=== PATIENT | female | born 1995 | race African-American/Black ===

== ENCOUNTER 2016-09-10 13:44 | Emergency (ER) | payer OTHER ==
[2016-09-10 14:11] VITALS: BP 122/74
--- NOTE | 2016-09-10 14:41 | PHYS DOC ---
Past Medical History Past Medical History: Depression Past Surgical History: No Surgical History Alcohol Use: Occasionally Drug Use: None Adult General Chief Complaint Chief Complaint: NAUSEA/VOMITING/DIARRHA HPI HPI Patient is a 21 year old female who presents with complaint of nausea, vomiting , and diarrhea since last night. Patient states that she has had a total of 3-4 episodes of vomiting and 2 episodes of loose stools since onset of symptoms. Patient states that she ate candy, cake, and soda last night and stated that she thought this made her sick, however she states that she has had continued symptoms since last night after eating. Patient denies any associated fevers. Patient denies any significant past medical history. Patient states that she is currently on her menstrual period. Patient states that she is having aching upper abdominal pain but denies any sharp localized pain. Patient states that she has not been able to tolerate any food since onset of symptoms. Patient has not taken any medications to help with symptoms at this time. Review of Systems Review of Systems Constitutional: Denies fever or chills [] Eyes: Denies change in visual acuity, redness, or eye pain [] HENT: Denies nasal congestion or sore throat [] Respiratory: Denies cough or shortness of breath [] Cardiovascular: Denies chest pain or edema [] GI: Nausea, vomiting, diarrhea, abdominal pain [] : Denies dysuria or hematuria [] Musculoskeletal: Denies back pain or joint pain [] Integument: Denies rash or skin lesions [] Neurologic: Denies headache, focal weakness or sensory changes [] Current Medications Current Medications Current Medications Medications (Trade) Dose Ordered Sig/[facility] Start Time Stop Time Status Last Admin Dose Admin Ondansetron HCl (Zofran Odt) 8 mg 1X ONCE 09/10/16 14:45 09/10/16 14:46 DC 09/10/16 14:45 8 MG Allergies Allergies Allergies Coded Allergies Type Severity Reaction Last Updated Verified No Known Drug Allergies 05/07/15 No Physical Exam Physical Exam Constitutional: Alert, afebrile, appears in no acute distress. [] HENT: Normocephalic, atraumatic, bilateral external ears normal, oropharynx moist, no oral exudates, nose normal. [] Eyes: PERRLA, EOMI, conjunctiva normal, no discharge. [] Neck: Normal range of motion, no tenderness, supple, no stridor. [] Cardiovascular:Heart rate regular rhythm, no murmur [] Lungs & Thorax: Bilateral breath sounds clear to auscultation [] Abdomen: Bowel sounds normal, soft, no tenderness, no masses, no pulsatile masses. [] Skin: Warm, dry, no erythema, no rash. [] Back: No tenderness, no CVA tenderness. [] Extremities: No tenderness, no cyanosis, no clubbing, ROM intact, no edema. [] Neurologic: Alert and oriented X 3, normal motor function, normal sensory function, no focal deficits noted. [] Current Patient Data Vital Signs Vital Signs Date Time Temp Pulse Resp B/P (MAP) Pulse Ox O2 Delivery O2 Flow Rate FiO2 09/10/16 14:11 99.2 88 20 99 Room Air 99.2 Lab Values Laboratory Tests Test 09/10/16 13:34 09/10/16 14:18 POC Urine HCG, Qualitative Hcg negative (Negative) Urine Collection Type Void Urine Color [place]a Urine Clarity Cloudy Urine pH 5.5 Urine Specific [place] >=1.030 Urine Protein 30 mg/dL (NEG-TRACE) Urine Glucose (UA) Negative mg/dL (NEG) Urine Ketones (Stick) Negative mg/dL (NEG) Urine Blood Large (NEG) Urine Nitrite Negative (NEG) Urine Bilirubin Small (NEG) Urine Urobilinogen Dipstick 0.2 mg/dL (0.2 mg/dL) Urine Leukocyte Esterase Trace (NEG) Urine RBC 3-5 /HPF (0-2) Urine WBC 11-20 /HPF (0-4) Urine Squamous Epithelial Cells Mod /LPF Urine Bacteria Moderate /HPF (0-FEW) Urine Mucus Mod /LPF EKG EKG Not performed [] Radiology/Procedures Radiology/Procedures Not performed [] Course & Med Decision Making Course & Med Decision Making Pertinent Labs and Imaging studies reviewed. (See chart for details) Patient was given oral Zofran in the emergency department with improvement in symptoms. Patient was able to tolerate by mouth intake without difficulty. The patient's urine sample appears to be contaminated. Patient denies any urinary symptoms, thus I have decided to not start patient on antibiotics pending cultures at this time. Advised patient to follow-up with her primary doctor in 2 -3 days if symptoms are not improving and return to emergency department for any worsening symptoms. Patient voiced understanding and in agreement with treatment plan. Dragon Disclaimer Dragon Disclaimer This electronic medical record was generated, in whole or in part, using a voice recognition dictation system. Departure Departure Impression: Primary Impression: Nausea and vomiting Additional Impression: Diarrhea Disposition: 01 HOME, SELF-CARE Condition: IMPROVED Referrals: NO PCP (PCP) Patient Instructions: Diarrhea, Nausea and Vomiting Additional Instructions: Follow-up with her primary doctor in 2-3 days if symptoms are not improving. Return to the emergency department for any worsening symptoms. Scripts Ondansetron (ZOFRAN ODT) 4 Mg Tab.rapdis 4 MG PO Q8HRS Y for NAUSEA/VOMITING, #20 TAB Prov: EMELYN HOLLAND MD 09/10/16 Problem Qualifiers Primary Impression: Nausea and vomiting Vomiting type: unspecified Vomiting Intractability: non-intractable Qualified Codes: R11.2 - Nausea with vomiting, unspecified Additional Impression: Diarrhea Diarrhea type: presumed infectious Qualified Codes: A09 - Infectious gastroenteritis and colitis, unspecified EMELYN HOLLAND MD Sep 10, 2016 14:41
[2016-09-10] MEDS ORDERED: ONDANSETRON ODT 4 MG TAB.RAPDIS. PO ONE (14:45)
[2016-09-10 14:59] LABS: BILIRUBIN,URINE SMALL (NEG); GLUCOSE,URINE NEGATIVE (NEG); NITRITE,URINE NEGATIVE (NEG); PH,URINE 5.5; PROTEIN,URINE 30 mg/dL (NEG-TRACE); UROBILINOGEN,URINE 0.2 mg/dL (0.2 mg/dL)
[2016-09-10 15:40] LABS: BACTERIA,URINE MODERATE /HPF (0-FEW); SQUAMOUS EPITHELIAL CELL,UR MOD /LPF
[2016-09-10] MEDS ORDERED: ONDA4TAB10 PO (15:53)
== END 2016-09-10 16:15 | disposition home or self-care (01) ==
LOC: ER 13:44
DX: A09 Infectious gastroenteritis and colitis, unspecified (principal); F32.9 Major depressive disorder, single episode, unspecified
CPT/HCPCS: 81001; 81025; 87086; 99284; Q0162

== ENCOUNTER 2018-02-11 13:43 | Emergency (ER) | payer OTHER ==
[~2018-02-11] VITALS: Ht 157.5 cm; Wt 59.9 kg
[~2018-02-11 13:43] MED LIST: ONDA4TAB10 PO
[2018-02-11 14:08] LABS: BILIRUBIN,URINE NEGATIVE (NEG); CLARITY,URINE CLEAR; COLOR,URINE YELLOW; NITRITE,URINE NEGATIVE (NEG); PROTEIN,URINE NEGATIVE (NEG-TRACE); UROBILINOGEN,URINE 0.2 mg/dL (0.2 mg/dL)
[2018-02-11 14:17] LABS: BACTERIA,URINE MOD /HPF (0-FEW); RBC,URINE 0 /HPF (0-2); SQUAMOUS EPITHELIAL CELL,UR MOD /LPF
[2018-02-11] MEDS ORDERED: cefTRIAXone IM 250 MG VIAL IM ONE (15:00)
[2018-02-11] MEDS ORDERED: AZITHROMYCIN 250 MG TABLET. PO ONE (15:00)
[2018-02-11] MEDS ORDERED: METR500T PO (15:08)
--- NOTE | 2018-02-11 15:15 | PHYS DOC ---
Past Medical History Past Medical History: Depression Past Surgical History: No Surgical History Alcohol Use: Occasionally Drug Use: None Adult General Chief Complaint Chief Complaint: NAUSEA/VOMITING/DIARRHA HPI HPI Patient is a 22 year old female who presents with vaginal complaints. Patient states she was on dip oh until August of this year. She would have been due for another shot of Depo-Provera in late November. She chose to go off Depakote at that time. Since then she has had some irregular vaginal bleeding. She states the bleeding is about equal to a period but it is occurring with increasing frequency. No bib or excessive bleeding. No lightheadedness. No palpitations. She also complains of some yellow vaginal discharge that is normal. She was last sexually active 3 months earlier. No fever. Mild pelvic cramping but no persistent or severe pain or cramps. Review of Systems Review of Systems Constitutional: Denies fever or chills Eyes: Denies change HENT: Denies Respiratory: Denies cough or shortness of breath Cardiovascular: No additional information not addressed GI: Denies abdominal pain : Denies dysuria or hematuria Neurologic: Denies headache All other systems were reviewed and found to be within normal limits, except as documented in this note. Current Medications Current Medications Current Medications Medications (Trade) Dose Ordered Sig/[facility] Start Time Stop Time Status Last Admin Dose Admin Azithromycin (Zithromax) 1,000 mg 1X ONCE 02/11/18 15:00 02/11/18 15:03 DC Ceftriaxone Sodium (Rocephin Im) 250 mg 1X ONCE 02/11/18 15:00 02/11/18 15:03 DC Allergies Allergies Allergies Coded Allergies Type Severity Reaction Last Updated Verified No Known Drug Allergies 05/07/15 No Physical Exam Physical Exam Constitutional: Well developed, well nourished, no acute distress, non-toxic appearance HENT: Normocephalic, atraumatic, bilateral external ears normal, oropharynx moist Eyes: PERRLA, EOMI, conjunctiva normal Neck: Normal range of motion Cardiovascular:Heart rate regular rhythm, no murmur Lungs & Thorax: Bilateral breath sounds clear to auscultation Abdomen: Bowel sounds normal, soft, no tenderness Skin: Warm, dry, no erythema, no rash Back: No tenderness, no CVA tenderness Neurologic: Alert and oriented X 3 Psychologic: Affect normal Pelvic: normal female external genitalia. Vaginal mucosa is moist and uninflamed. Cervix is closed. Small amt of brown, old blood in vault but no active bleeding. No CMT or adnexal tenderness or masses. Current Patient Data Vital Signs Vital Signs Date Time Temp Pulse Resp B/P (MAP) Pulse Ox O2 Delivery O2 Flow Rate FiO2 02/11/18 13:50 98.5 74 16 140/67 (91) 98 Room Air 98.5 Lab Values Laboratory Tests Test 02/11/18 13:52 02/11/18 14:54 Urine Collection Type Unknown Urine Color Yellow Urine Clarity Clear Urine pH 6.0 Urine Specific [place] 1.020 Urine Protein Negative mg/dL (NEG-TRACE) Urine Glucose (UA) Negative mg/dL (NEG) Urine Ketones (Stick) Negative mg/dL (NEG) Urine Blood Moderate (NEG) Urine Nitrite Negative (NEG) Urine Bilirubin Negative (NEG) Urine Urobilinogen Dipstick 0.2 mg/dL (0.2 mg/dL) Urine Leukocyte Esterase Negative (NEG) Urine RBC 0 /HPF (0-2) Urine WBC 1-4 /HPF (0-4) Urine Squamous Epithelial Cells Mod /LPF Urine Bacteria Mod /HPF (0-FEW) Urine Mucus Mod /LPF POC Urine HCG, Qualitative Hcg negative (Negative) Microbiology 02/11/18 Wet Prep - Final, Complete EKG EKG [] Radiology/Procedures Radiology/Procedures [] Course & Med Decision Making Course & Med Decision Making Pertinent Labs and Imaging studies reviewed. (See chart for details) Patient was evaluated in the emergency department for some vaginal complaints and irregular bleeding. There was no sign of acute bleeding on her physical exam. Her vital signs were normal. Her conjunctiva did not have pallor. She had strong equal pulses. Pelvic exam was completed as documented above. The wet mount did reveal likely bacterial vaginosis. I gave the patient the option to receive empiric treatment for possible STD which she did opt to accept. She was given Rocephin and azithromycin in the emergency department. She was discharged home with Flagyl over the next 7 days. She is provided Dr. Camacho's information to follow-up regarding her irregular bleeding and her future control needs. Dragon Disclaimer Dragon Disclaimer This electronic medical record was generated, in whole or in part, using a voice recognition dictation system. Departure Departure Impression: Primary Impression: Bacterial vaginosis Disposition: HOME, SELF-CARE Condition: GOOD Patient Instructions: Bacterial Vaginosis Scripts Metronidazole (FLAGYL) 500 Mg Tablet 1 TAB PO BID, #14 TAB Prov: ESTEBAN TELLEZ DO 02/11/18 ESTEBAN TELLEZ DO Feb 11, 2018 15:15
[2018-02-11 15:27] VITALS: BP 127/76
[2018-02-12 15:31] LABS: GC PROBE Negative (Negative)
== END 2018-02-11 15:31 | disposition home or self-care (01) ==
LOC: ER 13:43
DX: N76.0 Acute vaginitis (principal); B96.89 Other specified bacterial agents as the cause of diseases classified elsewhere
CPT/HCPCS: 81001; 81025; 87491; 87591; 99284; J0696; Q0111; Q0144

== ENCOUNTER 2018-03-24 04:52 | Emergency (ER) | payer OTHER ==
[~2018-03-24] VITALS: Ht 165.1 cm; Wt 59.9 kg
[~2018-03-24 04:52] MED LIST changes: +METR500T PO
--- NOTE | 2018-03-24 05:37 | PHYS DOC ---
Past Medical History Past Medical History: Depression Past Surgical History: No Surgical History Alcohol Use: Occasionally Drug Use: None Adult General Chief Complaint Chief Complaint: VAGINAL BLEEDING HPI HPI Patient is a 22 year old female who presents with pelvic pain and irregular vaginal bleeding. Patient had previously been on Depo-Provera. Her last dose was in August of this year. She decided not to renew that medication when it was time. Since then, the patient has had some irregular bleeding but states over the last several months she did have more regular menstrual periods which she normally describes to be light. She presents to the ER today with pelvic cramping and vaginal bleeding over the last 7-10 days. She describes soaking many pads daily and going through several boxes of tampons and pads. This is not normal for her. She comes in today with an episode of what she perceives to be a large amount of blood immediately after waking up this morning. No fever or chills. She denies chance of although she is not currently on control. No lightheadedness or palpitations. Review of Systems Review of Systems Constitutional: Denies fever Eyes: Denies change in visual acuity HENT: Denies Respiratory: Denies dyspnea Cardiovascular: No additional information not addressed in HPI GI: Denies abdominal pain, nausea : Denies dysuria or hematuria Musculoskeletal: Denies back pain Integument: Denies rash Neurologic: Denies headache All other systems were reviewed and found to be within normal limits, except as documented in this note. Current Medications Current Medications Current Medications Medications (Trade) Dose Ordered Sig/[facility] Start Time Stop Time Status Last Admin Dose Admin Acetaminophen/ Hydrocodone Bitart (Lortab 5/325) 1 tab 1X ONCE 03/24/18 06:45 03/24/18 06:46 Ibuprofen (Motrin) 800 mg 1X ONCE 03/24/18 06:45 03/24/18 06:46 Allergies Allergies Allergies Coded Allergies Type Severity Reaction Last Updated Verified No Known Drug Allergies 05/07/15 No Physical Exam Physical Exam Constitutional: Well developed, well nourished, no acute distress, non-toxic appearance HENT: Normocephalic, atraumatic, bilateral external ears normal, oropharynx moist Eyes: PERRLA, EOMI Neck: Normal range of motion Cardiovascular:Heart rate regular rhythm, no murmur Lungs & Thorax: Bilateral breath sounds clear to auscultation Abdomen: Bowel sounds normal, soft, no tenderness Skin: Warm, dry, no erythema, no rash Extremities: No tenderness Neurologic: Alert and oriented X 3 Psychologic: Affect normal Pelvic: normal female external genitalia. Vaginal mucosa is uninflamed. small amt of blood oozing from os. Mild adnexal tenderness on the right. None on the left. No cervical motion tenderness. Current Patient Data Vital Signs Vital Signs Date Time Temp Pulse Resp B/P (MAP) Pulse Ox O2 Delivery O2 Flow Rate FiO2 03/24/18 05:40 73 130/69 (89) Room Air 03/24/18 05:00 98.5 16 98 98.5 Lab Values Laboratory Tests Test 03/24/18 05:25 03/24/18 05:31 Urine Collection Type Unknown Urine Color Red Urine Clarity Cloudy Urine pH 5.0 Urine Specific [place] 1.025 Urine Protein 30 mg/dL (NEG-TRACE) Urine Glucose (UA) Negative mg/dL (NEG) Urine Ketones (Stick) mg/dL (NEG) Urine Blood Large (NEG) Urine Nitrite Negative (NEG) Urine Bilirubin (NEG) Urine Urobilinogen Dipstick 1.0 mg/dL (0.2 mg/dL) Urine Leukocyte Esterase (NEG) Urine RBC Tntc /HPF (0-2) Urine WBC 5-10 /HPF (0-4) Urine Squamous Epithelial Cells Mod /LPF Urine Bacteria Few /HPF (0-FEW) POC Urine HCG, Qualitative Hcg negative (Negative) Microbiology 03/24/18 Wet Prep - Final, Complete Microbiology 03/24/18 Wet Prep - Final, Complete EKG EKG [] Radiology/Procedures Radiology/Procedures Pelvic US: 3.1 cm ovarian cyst on right Course & Med Decision Making Course & Med Decision Making Pertinent Labs and Imaging studies reviewed. (See chart for details) 05:20: Patient is seen and examined. No acute findings on PE. Will to pelvic exam, and pelvic US. 06:43: Ovarian cyst on US. No additional acute findings. No clinical signs of anemia on physical exam. Plan is for discharge home. The patient is requesting medication to help with her bleeding. She is placed on 20 mg of Provera daily. She is recommended to follow-up with the OB physician on-call. Regarding her ovarian cyst. These findings are discussed. She is provided naproxen 500 twice a day and Tasley for more severe pain. Patient will follow up with OB or return to the ER for any new or worsening symptoms. Dragon Disclaimer Dragon Disclaimer This electronic medical record was generated, in whole or in part, using a voice recognition dictation system. Departure Departure Disposition: ADMITTED INPATIENT Condition: GOOD Referrals: NO PCP (PCP) Scripts Hydrocodone/Apap 5-325 (NORCO 5-325 TABLET) 1 Each Tablet 1-2 EACH PO PRN Q6HRS PRN for SEVERE PAIN, #15 as needed for pain Prov: ESTEBAN TELLEZ DO 03/24/18 Naproxen (NAPROXEN) 500 Mg Tablet.dr 1 TAB PO BID, #60 TAB 0 Refills Prov: ESTEBAN TELLEZ DO 03/24/18 Medroxyprogesterone Acetate (PROVERA) 10 Mg Tablet 20 MG PO DAILY for 21 Days, #42 TAB Take 2 tablets by mouth daily Prov: ESTEBAN TELLEZ DO 03/24/18 ESTEBAN TELLEZ DO Mar 24, 2018 05:37
[2018-03-24 05:40] VITALS: BP 130/69
[2018-03-24 05:43] LABS: CLARITY,URINE CLOUDY; COLOR,URINE RED; NITRITE,URINE NEGATIVE (NEG); PROTEIN,URINE 30 mg/dL (NEG-TRACE)
[2018-03-24 05:45] LABS: BACTERIA,URINE FEW /HPF (0-FEW); RBC,URINE TNTC /HPF (0-2); SQUAMOUS EPITHELIAL CELL,UR MOD /LPF
[2018-03-24] MEDS ORDERED: MEDR10TA PO (06:35)
[2018-03-24] MEDS ORDERED: HYDR-3164 PO (06:35)
[2018-03-24] MEDS ORDERED: NAPR500T8 PO (06:35)
[2018-03-24] MEDS ORDERED: IBUPROFEN 400 MG TABLET. PO ONE (06:45)
[2018-03-24] MEDS ORDERED: HYDROcodone/APAP 5/325MG 1 TAB TABLET PO ONE (06:45)
--- NOTE | 2018-03-24 06:49 | RAD ---
TRANSVAGINAL Clinical Indication: PELVIC PAIN BLEEDING OVER 2 WEEKS Comparison: None. TECHNIQUE: Real-time ultrasound imaging of the pelvis using transvaginal window is performed. Findings: Uterus is anteverted. The uterus measures 6.9 x 3.7 x 3.4 cm. No focal myometrial abnormality. There is trace fluid in the endocervical canal. Endometrial stripe is normal measuring 4 mm. The ovaries demonstrate normal blood flow. There is mild cul-de-sac free fluid. There is right ovary functional cyst measuring 3.1 x 2.8 x 2.8 cm. IMPRESSION: Small right ovary functional cyst. Mild cul-de-sac free fluid. Findings likely physiologic. Electronically signed by: Zoran Sutton MD (03/24/2018 6:44 AM) [id number]
== END 2018-03-24 06:45 | disposition home or self-care (01) ==
LOC: ER 04:52
DX: N83.201 Unspecified ovarian cyst, right side (principal)
CPT/HCPCS: 76830; 81001; 81025; 87491; 87591; 99284; Q0111

== ENCOUNTER 2018-10-06 10:14 | Emergency (ER) | payer SELFPAY ==
[~2018-10-06] VITALS: Ht 160 cm; Wt 61.7 kg
[~2018-10-06 10:14] MED LIST changes: +HYDR-3164 PO; +MEDR10TA PO; +NAPR500T8 PO
[2018-10-06 10:38] VITALS: BP 116/62
[2018-10-06 10:45] LABS: BILIRUBIN,URINE NEGATIVE (NEG); CLARITY,URINE CLEAR; COLOR,URINE YELLOW; NITRITE,URINE NEGATIVE (NEG); PROTEIN,URINE NEGATIVE (NEG-TRACE)
--- NOTE | 2018-10-06 10:46 | PHYS DOC ---
Past Medical History Past Medical History: No Pertinent History, Depression Past Surgical History: No Surgical History Alcohol Use: Occasionally Drug Use: None Adult General Chief Complaint Chief Complaint: ABDOMINAL PAIN [facility] HPI Patient is a 23 year old female presents to the ED complaining of scant vaginal bleeding after sexual intercourse. States 2 separate episodes a week apart. Patient states she has a history of ovarian cysts. No abdominal pain. Patient is unsure if she has an STD. Patient last seen by an DOCUMENTATION MANAGER in April and had a negative workup. Patient states she has missed her period. Patient has a history of irregular periods. Patient reports no use of lube and that she does not require it for intercourse. Denies fever, vaginal discharge/bleeding, nausea/vomiting, fever, chest pain, shortness of breath or lower leg swelling. Review of Systems Review of Systems Constitutional: Denies fever or chills [] Eyes: Denies change in visual acuity, redness, or eye pain [] HENT: Denies nasal congestion or sore throat [] Respiratory: Denies cough or shortness of breath [] Cardiovascular: No additional information not addressed in HPI [] GI: Denies abdominal pain, nausea, vomiting, bloody stools or diarrhea [] : Complains of scant vaginal bleeding after intercourse. Denies dysuria or hematuria [] Musculoskeletal: Denies back pain or joint pain [] Integument: Denies rash or skin lesions [] Neurologic: Denies headache, focal weakness or sensory changes [] All other systems were reviewed and found to be within normal limits, except as documented in this note. Allergies Allergies Allergies Coded Allergies Type Severity Reaction Last Updated Verified No Known Drug Allergies 05/07/15 No Physical Exam Physical Exam Constitutional: Well developed, well nourished, no acute distress, non-toxic appearance. [] HENT: Normocephalic, atraumatic Neck: Normal range of motion, no tenderness, supple, no stridor. [] Cardiovascular:Heart rate regular rhythm, no murmur [] Lungs & Thorax: Bilateral breath sounds clear to auscultation [] Abdomen: Bowel sounds normal, soft, no tenderness, no masses, no pulsatile masses. [] : Normal external genitalia. no lesions. clear vaginal discharge. no odor. Cervix WNL. Floor Sweeper present. Skin: Warm, dry, no erythema, no rash. [] Back: No tenderness, no CVA tenderness. [] Extremities: No tenderness, no cyanosis, no clubbing, ROM intact, no edema. [] Neurologic: Alert and oriented X 3, normal motor function, normal sensory function, no focal deficits noted. [] Psychologic: Affect normal, judgement normal, mood normal. [] Current Patient Data Vital Signs Vital Signs Date Time Temp Pulse Resp B/P (MAP) Pulse Ox O2 Delivery O2 Flow Rate FiO2 10/06/18 10:38 98.3 80 18 116/62 (80) 100 Room Air 98.3 Lab Values Laboratory Tests Test 10/06/18 10:25 10/06/18 10:29 Urine Collection Type Unknown Urine Color Yellow Urine Clarity Clear Urine pH 6.0 Urine Specific [place] 1.025 Urine Protein Negative mg/dL (NEG-TRACE) Urine Glucose (UA) Negative mg/dL (NEG) Urine Ketones (Stick) Negative mg/dL (NEG) Urine Blood Trace (NEG) Urine Nitrite Negative (NEG) Urine Bilirubin Negative (NEG) Urine Urobilinogen Dipstick 1.0 mg/dL (0.2 mg/dL) Urine Leukocyte Esterase Small (NEG) Urine RBC 1-2 /HPF (0-2) Urine WBC 1-4 /HPF (0-4) Urine Squamous Epithelial Cells Many /LPF Urine Bacteria Mod /HPF (0-FEW) POC Urine HCG, Qualitative Hcg negative (Negative) Microbiology 10/06/18 Wet Prep - Final, Complete EKG EKG [] Radiology/Procedures Radiology/Procedures [] Course & Med Decision Making Course & Med Decision Making Pertinent Labs and Imaging studies reviewed. (See chart for details) [] Discussed lab findings with patient. Patient is having minor bleeding after sexual intercourse. States that she has missed her last period. test negative. Patient does not want to wait for wet prep results. GC and chlamydia pending. Discussed symptomatic treatment follow-up this week. Provided contact information/education. Discussed reasons to return to the ED. Patient understands and agrees with plan. 1530: call placed to notify patient of positive BV results. Family answered and requested that patient call [facility] ER. 1600: Patient called back and flagyl called in to pharmacy [address] and state where patient goes. Darline Disclaimer Darline Disclaimer This electronic medical record was generated, in whole or in part, using a voice recognition dictation system. Departure Departure Impression: Primary Impression: Dyspareunia Additional Impressions: DUB (dysfunctional uterine bleeding) Bacterial vaginosis Disposition: HOME, SELF-CARE Condition: STABLE Referrals: NO PCP (PCP) NELY ROBERTS Jr, MD Patient Instructions: Dyspareunia, Uterine Bleeding, Dysfunctional Scripts Naproxen (NAPROSYN) 500 Mg Tablet 1 TAB PO BID, #20 TAB Prov: JASKARAN MAN 10/06/18 Problem Qualifiers JASKARAN MAN Oct 06, 2018 10:46
[2018-10-06 10:52] LABS: BACTERIA,URINE MOD /HPF (0-FEW); SQUAMOUS EPITHELIAL CELL,UR MANY /LPF
[2018-10-06] MEDS ORDERED: NAPR-683 PO (12:23)
[2018-10-07 17:14] LABS: GC PROBE Negative (Negative)
--- NOTE | 2018-10-08 16:53 | VNOTE ---
CALL BACK NOTE CALL BACK Microbiology 10/06/18 Wet Prep - Final, Complete Positive for chlamydia and not treated. Called and left a voicemail JOSE C GOLDSTEIN APRN Oct 08, 2018 16:53
== END 2018-10-06 12:33 | disposition home or self-care (01) ==
LOC: ER 10:14
DX: N76.0 Acute vaginitis (principal); N94.10 Unspecified dyspareunia; B96.89 Other specified bacterial agents as the cause of diseases classified elsewhere; F32.9 Major depressive disorder, single episode, unspecified
CPT/HCPCS: 81001; 81025; 87491; 87591; 99284; Q0111

== ENCOUNTER 2018-12-17 18:08 | Emergency (ER) | payer MEDICAID ==
[~2018-12-17] VITALS: Ht 160 cm; Wt 61.7 kg
[~2018-12-17 18:08] MED LIST changes: +NAPR-683 PO
[2018-12-17 18:15] VITALS: BP 108/63
[2018-12-17 18:51] LABS: BILIRUBIN,URINE SMALL (NEG); CLARITY,URINE CLEAR; COLOR,URINE YELLOW; NITRITE,URINE NEGATIVE (NEG); PH,URINE 5.5; PROTEIN,URINE NEGATIVE (NEG-TRACE); UROBILINOGEN,URINE 0.2 mg/dL (0.2 mg/dL)
[2018-12-17 18:57] LABS: BACTERIA,URINE MODERATE /HPF (0-FEW); RBC,URINE 0 /HPF (0-2); SQUAMOUS EPITHELIAL CELL,UR MANY /LPF; WBC,URINE OCC /HPF (0-4)
[2018-12-17] MEDS: ONDANSETRON ODT 4 MG TAB.RAPDIS. PO ONE (19:05)
[2018-12-17] MEDS ORDERED: ONDA4TAB7 PO (19:06)
--- NOTE | 2018-12-17 19:07 | PHYS DOC ---
Past Medical History Past Medical History: No Pertinent History Past Surgical History: No Surgical History Alcohol Use: None Drug Use: Marijuana Adult General Chief Complaint Chief Complaint: NAUSEA/VOMITING/DIARRHA HPI HPI Patient is a 23-year-old female who presents with complaint of nausea and vomiting that started couple of days ago. Patient states that she is been able to keep fluids down but gets nauseated when she eats. She indicates that first day last menstrual period was November 08 and is concerned that she might be . Patient has had 1 prior and has one healthy child. She denies any abdominal pain, pelvic cramping or vaginal bleeding. She also denies any vaginal discharge. She denies any fever or diarrhea.[] Review of Systems Review of Systems Constitutional: Denies fever or chills [] Respiratory: Denies cough or shortness of breath [] Cardiovascular: No additional information not addressed in HPI [] GI: Denies abdominal pain. Complains of nausea and vomiting without diarrhea. [] : Denies dysuria or hematuria [] Neurologic: Denies headache, focal weakness or sensory changes [] Current Medications Current Medications Current Medications Medications (Trade) Dose Ordered Sig/Kylie Start Time Stop Time Status Last Admin Dose Admin Ondansetron HCl (Zofran Odt) 4 mg 1X ONCE 12/17/18 18:45 12/17/18 18:46 DC Allergies Allergies Allergies Coded Allergies Type Severity Reaction Last Updated Verified No Known Drug Allergies 05/07/15 No Physical Exam Physical Exam Constitutional: Well developed, well nourished, no acute distress, non-toxic appearance. [] Cardiovascular:Heart rate regular rhythm, no murmur [] Lungs & Thorax: Bilateral breath sounds clear to auscultation [] Abdomen: Bowel sounds normal, soft, no tenderness. [] Skin: Warm, dry, no erythema, no rash. [] Neurologic: Alert and oriented X 3, no focal deficits noted. [] Current Patient Data Vital Signs Vital Signs Date Time Temp Pulse Resp B/P (MAP) Pulse Ox O2 Delivery O2 Flow Rate FiO2 12/17/18 18:15 98.5 103 16 108/63 (78) 99 Room Air 98.5 Lab Values Laboratory Tests Test 12/17/18 18:21 12/17/18 18:26 Urine Collection Type Void Urine Color Yellow Urine Clarity Clear Urine pH 5.5 Urine Specific [place] >=1.030 Urine Protein Negative mg/dL (NEG-TRACE) Urine Glucose (UA) Negative mg/dL (NEG) Urine Ketones (Stick) 15 mg/dL (NEG) Urine Blood Negative (NEG) Urine Nitrite Negative (NEG) Urine Bilirubin Small (NEG) Urine Urobilinogen Dipstick 0.2 mg/dL (0.2 mg/dL) Urine Leukocyte Esterase Negative (NEG) Urine RBC 0 /HPF (0-2) Urine WBC Occ /HPF (0-4) Urine Squamous Epithelial Cells Many /LPF Urine Bacteria Moderate /HPF (0-FEW) Urine Mucus Marked /LPF POC Urine HCG, Qualitative Hcg positive (Negative) EKG EKG [] Radiology/Procedures Radiology/Procedures [] Course & Med Decision Making Course & Med Decision Making Pertinent Labs and Imaging studies reviewed. (See chart for details) [] Dragon Disclaimer Dragon Disclaimer This electronic medical record was generated, in whole or in part, using a voice recognition dictation system. Departure Departure Impression: Primary Impression: Nausea and vomiting during Disposition: 01 HOME, SELF-CARE Condition: STABLE Referrals: NO PCP (PCP) Patient Instructions: Nausea and Vomiting, Scripts Ondansetron Hcl (ZOFRAN) 4 Mg Tablet 4 MG PO PRN TID PRN for NAUSEA, #15 nausea/vomiting Prov: FELIX GUTIERREZ Jr. DO 12/17/18 FELIX GUTIERREZ Jr. DO Dec 17, 2018 19:07
== END 2018-12-17 19:20 | disposition home or self-care (01) ==
LOC: ER 18:08
DX: O21.8 Other vomiting complicating pregnancy (principal); Z3A.01 Less than 8 weeks gestation of pregnancy
CPT/HCPCS: 81001; 81025; 87086; 99284; Q0162

== ENCOUNTER 2019-03-21 08:39 | Emergency (ER) | payer MEDICAID ==
[~2019-03-21] VITALS: Ht 157.5 cm; Wt 60.8 kg
[~2019-03-21 08:39] MED LIST changes: +ONDA4TAB7 PO
[2019-03-21] MEDS ORDERED: IV NORMAL SALINE 1000ML BAG 1,000 ML IV SCH (09:13)
[2019-03-21] MEDS ORDERED: ONDANSETRON PF 4 MG/2 ML VIAL. IV ONE (09:15)
[2019-03-21 10:17] LABS: BILIRUBIN,URINE NEGATIVE (NEG); CLARITY,URINE TURBID; COLOR,URINE YELLOW; NITRITE,URINE NEGATIVE (NEG); PROTEIN,URINE NEGATIVE (NEG-TRACE)
[2019-03-21 10:18] LABS: ANION GAP 11 (6-14); BLOOD UREA NITROGEN 4 mg/dL (7-20); BUN/CREATININE RATIO 6 (6-20); CALCIUM 8.8 mg/dL (8.5-10.1); CARBON DIOXIDE 26 mmol/L (21-32); CHLORIDE 103 mmol/L (98-107); CREATININE 0.7 mg/dL (0.6-1.0); GFR 126.6; GLUCOSE 80 mg/dL (70-99); POTASSIUM 3.7 mmol/L (3.5-5.1); SODIUM 140 mmol/L (136-145)
[2019-03-21 10:24] LABS: ALBUMIN/GLOBULIN RATIO 0.8 (1.0-1.7); ALK PHOS 50 U/L (46-116); AST (SGOT) 13 U/L (15-37); BASO % 0 % (0-3); EOS % 0 % (0-3); HEMATOCRIT 37.7 % (36.0-47.0); HEMOGLOBIN 13.1 g/dL (12.0-15.5); LYMPH # 1.3 x10^3/uL (1.0-4.8); LYMPH % 18 % (24-48); MEAN CORPUSCULAR HEMOGLOBIN 33 pg (25-35); MEAN CORPUSCULAR HGB CONC 35 g/dL (31-37); MEAN CORPUSCULAR VOLUME 93 fL (79-100); MONO # 0.7 x10^3/uL (0.0-1.1); MONO % 10 % (0-9); NEUT # 5.4 x10^3/uL (1.8-7.7); NEUT % 72 % (31-73); PLATELET COUNT 210 x10^3/uL (140-400); RED BLOOD COUNT 4.04 x10^6/uL (3.50-5.40); RED CELL DISTRIBUTION WIDTH 13.5 % (11.5-14.5); TOTAL BILIRUBIN 0.3 mg/dL (0.2-1.0); TOTAL PROTEIN 6.8 g/dL (6.4-8.2); WHITE BLOOD COUNT 7.5 x10^3/uL (4.0-11.0)
[2019-03-21 10:25] LABS: ALT (SGPT) < 6 U/L (14-59)
--- NOTE | 2019-03-21 10:28 | PHYS DOC ---
Past Medical History Past Medical History: No Pertinent History Past Surgical History: No Surgical History Alcohol Use: None Drug Use: Marijuana Adult General Chief Complaint Chief Complaint: VOMITING IN HPI HPI Patient is a 23-year-old female who presents with complaint of headache with nausea and vomiting as well as some lower abdominal cramping. She denies any vaginal bleeding or discharge. Patient states that she is 19 weeks . Patient is . She denies any chest pain or shortness breath. She denies any fever or urinary discomfort. Patient rates her pain to be 4 out of 10.[] Review of Systems Review of Systems Constitutional: Denies fever or chills [] Respiratory: Denies cough or shortness of breath [] Cardiovascular: No additional information not addressed in HPI [] GI: Complains of abdominal cramping with nausea and vomiting. Denies diarrhea [] : Denies dysuria or hematuria [] Musculoskeletal: Denies back pain or joint pain [] Integument: Denies rash or skin lesions [] Neurologic: Complains of headache without focal weakness or sensory changes [] All other systems were reviewed and found to be within normal limits, except as documented in this note. Current Medications Current Medications Current Medications Medications (Trade) Dose Ordered Sig/Kylie Start Time Stop Time Status Last Admin Dose Admin Ondansetron HCl (Zofran) 4 mg 1X ONCE 03/21/19 09:15 03/21/19 09:17 DC 03/21/19 09:55 4 MG Sodium Chloride 1,000 ml @ 1,000 mls/hr Q1H 03/21/19 09:13 03/21/19 10:12 DC 03/21/19 09:54 1,000 MLS/HR Allergies Allergies Allergies Coded Allergies Type Severity Reaction Last Updated Verified No Known Drug Allergies 05/07/15 No Physical Exam Physical Exam Constitutional: Well developed, well nourished, no acute distress, non-toxic appearance. [] HENT: Normocephalic, atraumatic, bilateral external ears normal, oropharynx moist, no oral exudates, nose normal. [] Eyes: PERRLA, EOMI, conjunctiva normal, no discharge. [] Neck: Normal range of motion, no tenderness, supple, no stridor. [] Cardiovascular: Regular rate and rhythm[] Lungs & Thorax: Bilateral breath sounds clear to auscultation [] Abdomen: Bowel sounds normal, soft, gravid with no tenderness. [] Skin: Warm, dry, no erythema, no rash. [] Extremities: No tenderness, no cyanosis, no clubbing, ROM intact, no edema. [] Neurologic: Alert and oriented X 3, no focal deficits noted. [] Current Patient Data Vital Signs Vital Signs Date Time Temp Pulse Resp B/P (MAP) Pulse Ox O2 Delivery O2 Flow Rate FiO2 03/21/19 09:00 89.5 86 18 141/60 (87) 100 Room Air 89.5 Lab Values Laboratory Tests Test 03/21/19 09:00 03/21/19 09:27 Urine Collection Type Unknown Urine Color Yellow Urine Clarity Turbid Urine pH 8.0 Urine Specific [place] 1.020 Urine Protein Negative mg/dL (NEG-TRACE) Urine Glucose (UA) Negative mg/dL (NEG) Urine Ketones (Stick) Negative mg/dL (NEG) Urine Blood Negative (NEG) Urine Nitrite Negative (NEG) Urine Bilirubin Negative (NEG) Urine Urobilinogen Dipstick 1.0 mg/dL (0.2 mg/dL) Urine Leukocyte Esterase Moderate (NEG) Urine RBC 1-2 /HPF (0-2) Urine WBC 5-10 /HPF (0-4) Urine Squamous Epithelial Cells Mod /LPF Urine Amorphous Sediment Present /HPF Urine Bacteria Few /HPF (0-FEW) Urine Mucus Slight /LPF Urine Trichomonas Present White Blood Count 7.5 x10^3/uL (4.0-11.0) Red Blood Count 4.04 x10^6/uL (3.50-5.40) Hemoglobin 13.1 g/dL (12.0-15.5) Hematocrit 37.7 % (36.0-47.0) Mean Corpuscular Volume 93 fL (79-100) Mean Corpuscular Hemoglobin 33 pg (25-35) Mean Corpuscular Hemoglobin Concent 35 g/dL (31-37) Red Cell Distribution Width 13.5 % (11.5-14.5) Platelet Count 210 x10^3/uL (140-400) Neutrophils (%) (Auto) 72 % (31-73) Lymphocytes (%) (Auto) 18 % (24-48) L Monocytes (%) (Auto) 10 % (0-9) H Eosinophils (%) (Auto) 0 % (0-3) Basophils (%) (Auto) 0 % (0-3) Neutrophils # (Auto) 5.4 x10^3/uL (1.8-7.7) Lymphocytes # (Auto) 1.3 x10^3/uL (1.0-4.8) Monocytes # (Auto) 0.7 x10^3/uL (0.0-1.1) Eosinophils # (Auto) 0.0 x10^3/uL (0.0-0.7) Basophils # (Auto) 0.0 x10^3/uL (0.0-0.2) Sodium Level 140 mmol/L (136-145) Potassium Level 3.7 mmol/L (3.5-5.1) Chloride Level 103 mmol/L (98-107) Carbon Dioxide Level 26 mmol/L (21-32) Anion Gap 11 (6-14) Blood Urea Nitrogen 4 mg/dL (7-20) L Creatinine 0.7 mg/dL (0.6-1.0) Estimated GFR (Cockcroft-Gault) 126.6 BUN/Creatinine Ratio 6 (6-20) Glucose Level 80 mg/dL (70-99) Calcium Level 8.8 mg/dL (8.5-10.1) Total Bilirubin 0.3 mg/dL (0.2-1.0) Aspartate Amino Transferase (AST) 13 U/L (15-37) L Alanine Aminotransferase (ALT) < 6 U/L (14-59) L Alkaline Phosphatase 50 U/L (46-116) Total Protein 6.8 g/dL (6.4-8.2) Albumin 3.0 g/dL (3.4-5.0) L Albumin/Globulin Ratio 0.8 (1.0-1.7) L Laboratory Tests 03/21/19 09:27 Laboratory Tests 03/21/19 09:27 EKG EKG [] Radiology/Procedures Radiology/Procedures [] Course & Med Decision Making Course & Med Decision Making Pertinent Labs and Imaging studies reviewed. (See chart for details) [] Dragon Disclaimer Dragon Disclaimer This electronic medical record was generated, in whole or in part, using a voice recognition dictation system. Departure Departure Impression: Primary Impression: Headache Additional Impression: Nausea and vomiting Disposition: HOME, SELF-CARE Condition: STABLE Referrals: NO PCP (PCP) Patient Instructions: Headache, FAQs, Nausea and Vomiting, Scripts Ondansetron (ONDANSETRON ODT) 4 Mg Tab.rapdis 1 TAB PO PRN Q6-8HRS PRN for NAUSEA, #15 TAB Prov: FELIX GUTIERREZ Jr. DO 03/21/19 Problem Qualifiers Primary Impression: Headache Headache type: unspecified Headache chronicity pattern: unspecified raine rn Intractability: not intractable Qualified Codes: R51 - Headache Additional Impression: Nausea and vomiting Vomiting type: unspecified Vomiting Intractability: non-intractable Qualified Codes: R11.2 - Nausea with vomiting, unspecified FELIX GUTIERREZ Jr. DO Mar 21, 2019 10:28
[2019-03-21 10:45] LABS: AMORPHOUS SEDIMENT,UR PRESENT /HPF; SQUAMOUS EPITHELIAL CELL,UR MOD /LPF; TRICHOMONAS,URINE PRESENT
[2019-03-21 10:46] LABS: BACTERIA,URINE FEW /HPF (0-FEW)
[2019-03-21] MEDS ORDERED: ONDA4TAB12 PO (11:14)
[2019-03-21 11:27] VITALS: BP 124/63
== END 2019-03-21 11:26 | disposition home or self-care (01) ==
LOC: ER 08:39
DX: O21.9 Vomiting of pregnancy, unspecified (principal); R51 Headache; R10.30 Lower abdominal pain, unspecified; Z3A.19 19 weeks gestation of pregnancy
CPT/HCPCS: 36415; 80053; 81001; 85025; 87086; 96361; 96374; 99284; J2405; J7030

== ENCOUNTER → 2019-04-23 | Outpatient (CLI) | payer MEDICAID ==
[~2019-04-23] MED LIST changes: +ONDA4TAB12 PO
--- NOTE | 2019-04-23 15:29 | KCIC ---
EXAM: Obstetrics sonogram. HISTORY: Uncertain dates. TECHNIQUE: Sonographic imaging of a gravid uterus was performed. COMPARISON: None. FINDINGS: There is a single intrauterine fetus in cephalic presentation with a normal heart rate of 139 bpm. The stomach, kidneys, bladder, spine, extremities and heart are unremarkable. The brain and facial profile are not well seen due to presentation. There is a three-vessel umbilical cord with normal insertion. The cervix is closed and measures 3.27 cm in length. There is an anterior placenta without evidence of placenta previa. The amniotic fluid index is normal 30.1 cm. The biparietal left wrist 5.70 cm, corresponding with 23 weeks and 3 days. The head circumference is 21.10 cm, corresponding with 23 weeks and 1 day. The abdominal circumference is 17.80 cm, corresponding with 20 weeks and 5 days. The femoral length is 4.24 cm, corresponding with 23 weeks and 6 days. The estimated gestational age patient combined ultrasound measurements is 23 weeks and 2 days and the estimated weight is 572 g. The estimated due date is 08/18/2019. IMPRESSION: 1. Single intrauterine fetus in cephalic presentation with normal heart rate and gestational age of 23 weeks and 2 days. 2. Suboptimal evaluation of the brain and facial profile due to presentation. The remainder of the anatomy survey is unremarkable. Electronically signed by: Karin Roth MD (04/23/2019 3:26 PM) [facility]
== END | disposition home or self-care (01) ==
LOC: KCIC US 14:00
PROVIDERS: ATTEND Obstetrics & Gynecology
DX: O26.842 Uterine size-date discrepancy, second trimester (principal); Z3A.23 23 weeks gestation of pregnancy
CPT/HCPCS: 76805